=== PATIENT | male | born 1950 | race Caucasian/White ===

== ENCOUNTER → 2016-12-16 | Outpatient (CLI) | payer OTHER ==
[~2016-12-16] MED LIST: REGADENOSON 0.4 MG/5 ML SYRINGE ONE
== END | disposition home or self-care (01) ==
LOC: CFH 06:44
PROVIDERS: ATTEND Internal Medicine Cardiovascular Disease
DX: I11.0 Hypertensive heart disease with heart failure (principal); I50.41 Acute combined systolic (congestive) and diastolic (congestive) heart failure; I35.8 Other nonrheumatic aortic valve disorders; I48.91 Unspecified atrial fibrillation; E78.5 Hyperlipidemia, unspecified; Z87.891 Personal history of nicotine dependence
CPT/HCPCS: 78452; 93017; 93306; A9502; J2785

== ENCOUNTER 2017-01-27 09:41 | Day surgery (SDC) | payer OTHER ==
[~2017-01-27] VITALS: Ht 182.9 cm; Wt 109.1 kg
[2017-01-27 10:27] VITALS: BP 158/104
[2017-01-27] MEDS ORDERED: MIDAZOLAM 1 MG/ML, 2ML IV ONE (10:30)
[2017-01-27] MEDS ORDERED: FENTANYL PF 100 MCG/2ML IV ONE (10:30)
[2017-01-27] MEDS ORDERED: FURO20TA3 PO (10:38)
[2017-01-27] MEDS ORDERED: SIMV40TA3 PO (10:38)
[2017-01-27] MEDS ORDERED: LISI1TAB7 PO (10:38)
[2017-01-27] MEDS ORDERED: METO-282 PO (10:38)
[2017-01-27] MEDS ORDERED: RIVA20TA PO (10:38)
[2017-01-27 11:15] LABS: HEMATOCRIT 49.9 % (39.2-51.8); HEMOGLOBIN 17.1 g/dL (13.7-18.0); WHITE BLOOD COUNT 10.1 x10^3/uL (3.4-10)
[2017-01-27 11:28] LABS: BLOOD UREA NITROGEN 21 mg/dL (7-18)
[2017-01-27] MEDS ORDERED: MIDAZOLAM 1 MG/ML, 5ML ONE (11:50)
[2017-01-27] MEDS ORDERED: FENTANYL PF 100 MCG/2ML ONE (11:51)
== END 2017-01-27 12:45 ==
LOC: CACL 09:41
PROVIDERS: ATTEND Internal Medicine Cardiovascular Disease
DX: I48.91 Unspecified atrial fibrillation (principal); I10 Essential (primary) hypertension
CPT/HCPCS: 36415; 80048; 85025; 92960; J2250; J3010

== ENCOUNTER → 2017-05-10 | Outpatient (CLI) | payer OTHER ==
[~2017-05-10] MED LIST changes: +FURO20TA3 PO; +LISI1TAB7 PO; +METO-282 PO; -REGADENOSON 0.4 MG/5 ML SYRINGE ONE; +RIVA20TA PO; +SIMV40TA3 PO
== END ==
LOC: CFH 11:40
PROVIDERS: ATTEND Family Medicine
DX: Z01.810 Encounter for preprocedural cardiovascular examination (principal); J90 Pleural effusion, not elsewhere classified
CPT/HCPCS: 71046

== ENCOUNTER → 2017-05-14 | Outpatient (CLI) | payer OTHER ==
[~2017-05-14] MED LIST changes: +AMIO200T42 PO; +HYDR25TA6 PO; +IRBE150T25 PO; +METO25TA91 PO
[2017-05-14 11:25] LABS: INTERNATIONAL NORMALIZED RATIO 1.2 (0.93-1.1); PROTHROMBIN TIME 12.3 Seconds (9.6-11.5)
[2017-05-14 11:27] LABS: BASOPHILS # (AUTO) 0.03 x10^3/uL (0-0.1); BASOPHILS % (AUTO) 0 % (0-1); EOSINOPHILS # (AUTO) 0.14 x10^3/uL (0-0.4); EOSINOPHILS % (AUTO) 2 % (1-7); LYMPHOCYTES % (AUTO) 13 % (22-44); MD NO; MEAN CORPUSCULAR HEMOGLOBIN 32.8 pg (27.5-34.5); MEAN CORPUSCULAR HGB CONC 33.7 g/dL (33.2-36.2); MEAN CORPUSCULAR VOLUME 97.1 fL (81-97); MEAN PLATELET VOLUME 9.6 fL (7.4-10.4); MONOCYTES # (AUTO) 1.07 x10^3/uL (0.2-0.8); MONOCYTES % (AUTO) 13 % (2-9); NEUTROPHILS # (AUTO) 5.86 x10^3/uL (1.8-6.8); NEUTROPHILS % (AUTO) 71 % (42-75); PLATELET COUNT 222 x10^3/uL (130-400); RED BLOOD COUNT 4.77 x10^6/uL (4.38-5.82); RED CELL DISTRIBUTION WIDTH 13.3 % (9.4-14.8)
[2017-05-14 11:30] LABS: CHLORIDE 107 mmol/L (98-107)
[2017-05-14 11:45] LABS: ALANINE AMINOTRANSFERASE 33 U/L (12-78); ALBUMIN 3.9 g/dL (3.4-5.0); ALKALINE PHOSPHATASE 85 U/L (45-117); ANION GAP 8 mmol/L (5-15); BILIRUBIN,TOTAL 0.6 mg/dL (0.2-1.0); CALCIUM 8.8 mg/dL (8.5-10.1); CREATININE 1.02 mg/dL (0.7-1.3); TOTAL PROTEIN 7.6 g/dL (6.4-8.2)
== END | disposition home or self-care (01) ==
LOC: STAR 09:28
PROVIDERS: ATTEND Internal Medicine Cardiovascular Disease
DX: Z01.818 Encounter for other preprocedural examination (principal); I48.91 Unspecified atrial fibrillation
CPT/HCPCS: 36415; 80053; 85025; 85610; 85730

== ENCOUNTER 2017-05-18 07:54 | Observation (INO) | payer OTHER ==
[2017-05-14 10:35] VITALS: BP 164/111
[~2017-05-18] VITALS: Ht 185.4 cm; Wt 114.1 kg
[~2017-05-18 07:54] MED LIST changes: -METO25TA91 PO
[2017-05-18] MEDS ORDERED: SODIUM CHLORIDE 0.9% 1,000 ML IV SCH (08:05)
[2017-05-18] MEDS ORDERED: FENTANYL PF 250 MCG/5ML ONE (09:27)
[2017-05-18] MEDS ORDERED: MIDAZOLAM 1 MG/ML, 2ML ONE (09:27)
[2017-05-18] MEDS ORDERED: ROCURONIUM 10 MG/ML,10ML ONE (10:00)
[2017-05-18] MEDS ORDERED: SUCCINYLCHOLINE 20 MG/ML, 10ML ONE (10:00)
[2017-05-18] MEDS ORDERED: EPHEDRINE 50 MG/ML, 1ML ONE (10:00)
[2017-05-18] MEDS ORDERED: ONDANSETRON 2MG/ML, 2ML ONE (10:00)
[2017-05-18] MEDS ORDERED: DEXAMETHASONE 4 MG/ML, 1ML ONE (10:00)
[2017-05-18] MEDS ORDERED: PROPOFOL 10 MG/ML, 20ML ONE (10:00)
[2017-05-18] MEDS ORDERED: LIDOCAINE 2%, 20ML ONE (10:11)
[2017-05-18] MEDS ORDERED: HEPARIN 1,000 UNITS/ML, 10ML ONE (10:13)
[2017-05-18] MEDS ORDERED: ISOPROTERENOL 0.2MG/ML, 5ML ONE (10:13)
[2017-05-18] MEDS ORDERED: PROTAMINE SULFATE 10 MG/ML, 5ML ONE (10:14)
[2017-05-18] MEDS ORDERED: ZOLPIDEM 5MG TABLET PO PRN (11:30)
[2017-05-18] MEDS ORDERED: ACETAMINOPHEN 325 MG TABLET PO PRN ×2 (11:30→12:00)
[2017-05-18] MEDS ORDERED: MEPERIDINE/PF 25MG/0.5ML IVPush PRN (12:00)
[2017-05-18] MEDS ORDERED: OXYcodone 5 MG/5 ML ORAL.SOL UDC PO PRN (12:00)
[2017-05-18] MEDS ORDERED: ALBUTEROL SULFATE 2.5 MG/3 ML NPPB PRN (12:00)
[2017-05-18] MEDS ORDERED: hydrALAzine 20 MG/ML, 1ML IV PRN ×2 (12:00→16:00)
[2017-05-18] MEDS ORDERED: FENTANYL PF 100 MCG/2ML IV PRN (12:00)
[2017-05-18] MEDS ORDERED: ONDANSETRON 2MG/ML, 2ML IVPush PRN (12:00)
[2017-05-18] MEDS ORDERED: MIDAZOLAM 1 MG/ML, 2ML IV PRN (12:00)
[2017-05-18] MEDS ORDERED: HYDROmorphone 1 MG/ML, 1ML IV PRN (12:00)
[2017-05-18] MEDS ORDERED: PROMETHAZINE 12.5 MG SUPP PR PRN (12:00)
[2017-05-18] MEDS ORDERED: LABETALOL 5MG/ML, 20ML IV PRN (12:00)
[2017-05-18] MEDS: RIVAROXABAN 20 MG TABLET PO SCH (12:38)
[2017-05-18] MEDS ORDERED: hydrALAzine 20 MG/ML, 1ML ONE (12:44)
[2017-05-18 13:40] VITALS: BP 165/104
[2017-05-18 14:45] VITALS: BP 148/94
[2017-05-18 15:25] VITALS: BP 156/92
[2017-05-18 17:25] VITALS: BP 150/87
[2017-05-18 18:24] VITALS: BP 162/90
[2017-05-18] MEDS ORDERED: SIMVASTATIN 40 MG TABLET PO SCH (21:00)
[2017-05-19 00:48] VITALS: BP 146/80
[2017-05-19] MEDS ORDERED: METO25TA91 PO (08:46)
[2017-05-19] MEDS ORDERED: IRBESARTAN 150 MG TABLET PO SCH (09:00)
[2017-05-19] MEDS ORDERED: IRBESARTAN 300 MG TABLET PO SCH (09:00)
[2017-05-19] MEDS ORDERED: FUROSEMIDE 20 MG TABLET PO SCH (09:00)
[2017-05-19 09:02] VITALS: BP_SYST 153; BP_SYST 168; BP_DIAS 83; BP_DIAS 89
[2017-05-19] MEDS: RIVAROXABAN 20 MG TABLET PO SCH (09:03)
== END 2017-05-19 10:14 | disposition home or self-care (01) ==
LOC: CACL 07:54 → ORIP 11:28 → 5SO 13:50 → DCLOUNGE 05-19 09:58
PROVIDERS: ADMIT Internal Medicine Cardiovascular Disease; ATTEND Internal Medicine Cardiovascular Disease
DX: I48.2 Chronic atrial fibrillation (principal); I48.92 Unspecified atrial flutter; I10 Essential (primary) hypertension
CPT/HCPCS: 85347; 93308; 93321; 93325; 93613; 93655; 93656; 93662; C1730; C1731; C1732; C1759; C1766; C1893; C1894; G0378; J0330; J0360; J1100; J1644; J2250; J2405; J2704; J2720; J3010; J3490